=== PATIENT | male | born 1995 | race Caucasian/White ===

== ENCOUNTER 2017-01-09 01:36 | Emergency (ER) | payer SELFPAY ==
[2017-01-09 01:38] VITALS: RESP 16; TEMP 97.7
--- NOTE | 2017-01-09 02:03 | EDPHY ---
H & P Stated Complaint: R shoulder injury Time Seen by Provider: 01/09/17 01:48 HPI/ROS: Chief Complaint: Right shoulder injury HPI: 21-year-old male had a fall onto his right shoulder when a friend of his hugged him and they fell to the ground. Patient felt a pop in his shoulder and feels that is out of place. Does not have a history of prior dislocations in the past. No new. Did not his head. No loss of consciousness. ROS: 10 point Review of Systems is negative except as noted in the HPI. PMH: None Social History: No smoking Family History: non-contributory Physical Exam: Gen: Awake, Alert, No Distress HEENT: Nose: no rhinorrhea Eyes: PERRLA, EOMI Mouth: Moist mucosa Neck: Supple, no JVD Ext: Right shoulder is deformed consistent with a shoulder dislocation, no bony deformity noted Skin: no rash Neuro: CN II-XII intact, Sensation grossly intact, Strength 5/5 in bilateral upper and lower extremities, sensation intact over the deltoid - Personal History Current Tetanus Diphtheria and Acellular Pertussis (TDAP): Yes - Medical/Surgical History Hx Asthma: No Hx Chronic Respiratory Disease: No Hx Diabetes: No Hx Cardiac Disease: No Hx Renal Disease: No Hx Cirrhosis: No Hx Alcoholism: No Hx HIV/AIDS: No Hx Splenectomy or Spleen Trauma: No Other PMH: denies - Social History Smoking Status: Never smoked Constitutional: Initial Vital Signs Temperature (C) 36.5 C 01/09/17 01:36 Heart Rate 87 01/09/17 01:36 Respiratory Rate 16 01/09/17 01:36 Blood Pressure 149/74 H 01/09/17 01:36 O2 Sat (%) 95 01/09/17 01:36 O2 Delivery Mode Room Air Allergies/Adverse Reactions: Penicillins Allergy (Verified 01/09/17 01:36) Home Medications: Medication Instructions Recorded NK [No Known Home Meds] 01/09/17 Medical Decision Making Procedures: Procedure: Dislocation reduction. The shoulder was reduced with external rotation without complications. Post reduction the patient's neurovascular exam is normal. Post reduction x-ray demonstrates reduction of the joint to the anatomic position. The procedure was performed by myself. ED Course/Re-evaluation: Patient shoulder dislocation reduced by me without complications. Repeat x-ray shows a normal only lined shoulder. Patient placed in a sling. Will refer to Orthopedics for outpatient follow-up. Departure - Departure Disposition: Home, Routine, Self-Care Clinical Impression: Shoulder dislocation Condition: Good Instructions: Shoulder Dislocation (ED) Additional Instructions: Keep your arm in the sling until your seen by Orthopedics. Follow up with Orthopedics in 2-3 days. Apply ice for 15 min of every hour 4 to 6 times a dayCVA Alternate acetaminophen (1000 mg) with ibuprofen (400 mg) every 4 hours as needed for pain. Referrals: Anton Vital MD [Medical Doctor] - As per Instructions
[2017-01-09 02:25] VITALS: BP 133/74; PULSE 82; O2SAT 94
== END 2017-01-09 02:25 | disposition home or self-care (01) ==
PROC: 0RSJXZZ Reposition Right Shoulder Joint, External Approach (ICD-10-PCS; principal; 2017-01-09)
DX: S43.004A Unspecified dislocation of right shoulder joint, initial encounter (principal); W18.39XA Other fall on same level, initial encounter